=== PATIENT | female | born 1955 | race Caucasian/White ===

== ENCOUNTER 2019-09-29 11:38 | Outpatient (CLI) | payer MEDICARE ==
--- NOTE | 2019-09-29 13:53 | RAD ---
PA AND LATERAL CHEST: Date: 09/29/2019 HISTORY: Lung cancer. COMPARISON: 05/30/13 study. FINDINGS: Heart size is within normal limits. Left hilar region is slightly prominent, but stable as compared t o the prior exam. Surgical clips are seen in the right suprahilar region. IMPRESSION: Postoperative changes of the right lung. Stable appearance to the chest. POS: [facility]
== END 2019-09-29 11:39 | disposition home or self-care (01) ==
LOC: MADRAD 11:38
PROVIDERS: ATTEND Nurse Practitioner Family
DX: Z08 Encounter for follow-up examination after completed treatment for malignant neoplasm (principal); Z85.110 Personal history of malignant carcinoid tumor of bronchus and lung; Z98.890 Other specified postprocedural states
CPT/HCPCS: 71046

== ENCOUNTER 2022-04-21 09:35 | Outpatient (CLI) | payer OTHER | END 2022-04-21 09:36 | disposition home or self-care (01) | LOC: MADLAB 09:35 | PROVIDERS: ATTEND Family Medicine | DX: R05.8 Other specified cough (principal); Z85.118 Personal history of other malignant neoplasm of bronchus and lung | CPT/HCPCS: 71046 ==